=== PATIENT | female | born 1995 | race Caucasian/White ===

== ENCOUNTER 2018-04-14 21:52 | Emergency (ER) | payer MEDICAID ==
[2018-04-14 21:58] VITALS: BP 160/96
--- NOTE | 2018-04-14 22:15 | EDPHY ---
H & P Stated Complaint: Burn on right finger from hot burner Time Seen by Provider: 04/14/18 22:14 HPI/ROS: HPI: This is a 23-year-old female who presents with Chief Complaint: Burn on right finger from hot burner Location: Right index and middle finger Quality: Burn Duration: Prior to arrival Signs and Symptoms: No bleeding, no radiation, no numbness, no weakness, no tingling, no incontinence, no decreased range of motion, + swelling, + pain, no fever Timing: Acute Severity: 10/13 Context: Patient is right-hand dominant, up-to-date on immunizations, presents with accidentally grabbing a hot burner with her index finger and middle finger prior to arrival. She reports that she felt immediate, constant, moderate nonradiating pain. She reports that her tetanus is current. She reports that she still has pain that is worsened with touching the area and movement. She has not washed the area or taking any [id number] medications. Modifying Factors: None Comment: ROS: A comprehensive 10 system review of systems is otherwise negative aside from elements mentioned in the history of present illness. MEDICAL/SURGICAL/SOCIAL HISTORY: Medical history: Generally healthy. Does not take any regular medications. LMP 1-2 weeks ago. Surgical history: Denies Social history: Never smoked. CONSTITUTIONAL: Slightly anxious young adult female, awake and alert, no obvious distress HEENT: Atraumatic and normocephalic. NECK: supple EXTREMITIES: 2/2 rate pulses, video specialist strength 5/5, right index and middle finger pad show blisters that are intact with epidermis and superficial dermis involvement with good intact capillary refill. Skin is bright red in color. DIP/PIP/MCP flexion/extension intact with good light touch sensation. no deformities, no clubbing, no cyanosis or edema. NEUROLOGICAL: no focal neuro deficits. GCS 15. Light touch sensation intact. SKIN: Warm and dry, no erythema. no rash. Good capillary refill. Source: Patient Exam Limitations: No limitations - Personal History LMP (Females 10-55): 8-14 Days Ago Current Tetanus/Diphtheria Vaccine: Yes Current Tetanus Diphtheria and Acellular Pertussis (TDAP): Yes - Medical/Surgical History Hx Asthma: No Hx Chronic Respiratory Disease: No Hx Diabetes: No Hx Cardiac Disease: No Hx Renal Disease: No Hx Cirrhosis: No Hx Alcoholism: No Hx HIV/AIDS: No Hx Splenectomy or Spleen Trauma: No Other PMH: denies - Social History Smoking Status: Never smoked Constitutional: Initial Vital Signs Temperature (C) 36.7 C 04/14/18 21:56 Heart Rate 99 04/14/18 21:56 Respiratory Rate 16 04/14/18 21:56 Blood Pressure 160/96 H 04/14/18 21:56 O2 Sat (%) 98 04/14/18 21:56 O2 Delivery Mode Room Air Allergies/Adverse Reactions: amoxicillin Allergy (Verified 04/14/18 21:56) Penicillins Allergy (Verified 04/14/18 21:56) Home Medications: Medication Instructions Recorded Ativan 04/14/18 Silver Sulfadiazine [Silvadene] 1 karen TP DAILY #1000 cream..g. 04/14/18 Medical Decision Making ED Course/Re-evaluation: Tetanus is up-to-date. Cleaned with soap and water; bacitracin and nonocclusive dressing applied. Given ibuprofen 600 mg with adequate pain relief. Verbal and written wound care instructions provided BSA is 1% Superficial partial-thickness burn noted No signs of neurovascular compromise/tenting of skin/compartment syndrome/ extremities and joints examined above and below area of concern and are neurovascularly intact. This patient was seen under the supervision of my secondary supervising physician. I evaluated care for this patient independently. Discussed this patient with Dr. Rainey who did not see the patient. Differential Diagnosis: Differential diagnosis includes but is not limited to 1st degree burn, second- degree burn, third-degree burn, 4th degree burn. Departure - Departure Disposition: Home, Routine, Self-Care Clinical Impression: Burn of finger of right hand, second degree Qualifiers: Encounter type: initial encounter Qualified Code(s): T23.221A - Burn of second degree of single right finger (nail) except thumb, initial encounter Condition: Good Instructions: Second Degree Burn (ED) Additional Instructions: Keep the dressing dry and in place for 48 hours. After 48 hours, you may remove the dressing; wash the site daily with mild soap and water; pat dry; apply antibiotic ointment cream and clean sterile dressing daily until fully healed. Take Tylenol 650 mg every 4 hours and/or Ibuprofen 600 mg every 8 hours with food as needed for pain. Apply ice for 30 minutes at a time; 2-3 times per day for the next 1-2 days. Follow up with [facility] in 2-3 days at which time they will evaluate and recommend with you if conservative management versus further intervention is indicated. Return to the ER immediately if you experience redness, red streaks, have fevers /chills, flu like symptoms, limited range of motion, or any other symptoms that concern you. Referrals: N[facility] LAWSON ,. [Clinic] - 2-3 days without fail Prescriptions: Silver Sulfadiazine [Silvadene] 1 karen TP DAILY #1000 cream..g.
[2018-04-14] MEDS ORDERED: IBUPROFEN 600 MG TAB PO ONE (22:22)
== END 2018-04-14 22:55 | disposition home or self-care (01) ==
PROC: 2W28X4Z Dressing of Right Upper Extremity using Bandage (ICD-10-PCS; principal; 2018-04-14)
DX: T23.231A Burn of second degree of multiple right fingers (nail), not including thumb, initial encounter (principal); X16.XXXA Contact with hot heating appliances, radiators and pipes, initial encounter; Z88.0 Allergy status to penicillin